=== PATIENT | male | born 1980 | race Caucasian/White ===

== ENCOUNTER 2017-02-06 10:09 | Emergency (ER) | payer SELFPAY ==
[~2017-02-06] VITALS: Ht 172.7 cm; Wt 73.8 kg
[~2017-02-06 10:09] MED LIST: MOTRIN800 MG PO
[2017-02-06] MEDS ORDERED: KEFLEX500 MG PO (12:00)
[2017-02-06 12:22] VITALS: BP 123/69
== END 2017-02-06 12:24 | disposition home or self-care (01) ==
LOC: EME 10:09
DX: L02.415 Cutaneous abscess of right lower limb (principal); F17.200 Nicotine dependence, unspecified, uncomplicated
CPT/HCPCS: 87070; 87077; 87205; 99281; 99284